=== PATIENT | female | born 1980 | race Hispanic/Latino ===

== ENCOUNTER 2023-01-22 15:39 | Inpatient (IN) | payer MEDICAID, SELFPAY ==
--- NOTE | ~2023-01-22 | XR_ITS ---
EXAMINATION: XR abdomen/kub 1V DATE: 01/24/2023 06:57 INDICATION: Bowel obstruction. TECHNIQUE: A supine view of the abdomen on 2 radiographs was obtained. COMPARISON: CT abdomen and pelvis 01/22/2023 FINDINGS: There are multiple dilated loops of small bowel. The colon is decompressed. The nasogastric tube tip is in the stomach. IMPRESSION: 1. Dilated small bowel, consistent with small bowel obstruction. Reviewed, dictated and finalized at location A.
--- NOTE | ~2023-01-22 | CT_ITS ---
EXAMINATION: CT guide absc cath placement DATE: 01/24/2023 15:30 INDICATION: Pelvic abscess TECHNIQUE: The procedure including the risks and benefits was discussed with the patient and the angela ent's son. Risks discussed included bleeding, infection, allergic reaction and nerve or organ injury. The patient understood the risks and benefits and agreed to proceed. The patient was confirmed to be receiving appropriate antibiotic coverage. The skin overlying the left buttock was prepped and drap ed in usual sterile fashion. Anesthetic was administered with 1% lidocaine subcutaneously. An 18-gau ge trochar needle was inserted into the pelvic peritoneal fluid collection by trocar technique utiliz ing intermittent CT guidance. Trochar was removed and a J-wire advanced into the fluid collection wit h position confirmed by CT. Utilizing Seldinger technique the needle was removed over the wire and th e tract serially dilated to 10 Bulgarian. Spontaneous efflux of fluid seen along the needle tract follow ing removal of the 10 Bulgarian dilator which was causing the patient discomfort. It was therefore elect ed to place an 8.5 Bulgarian catheter over the wire. After confirmation of positioning of the catheter w ithin the fluid collection the pigtail tip was locked and the wire removed. The catheter was stitched to the skin with suture and antibiotic appointment and a sterile dressing were applied. The catheter was then attached to suction drainage. There were no immediate complications. The dose-length produc t was 214.48 mGy-cm. FINDINGS: CT images demonstrate the catheter within the fluid collection. 60 mL of purulent appearing opaque joe-colored fluid was aspirated for testing. IMPRESSION: 1. Successful CT-guided left transgluteal percutaneous abscess drainage catheter placement. 2. 60 mL fluid was sent for aerobic and anaerobic cultures. 3. The catheter will be managed by Dr. Modi. Reviewed, dictated and finalized at location A. IMPRESSION: 1. Successful CT-guided left transgluteal percutaneous abscess drainage cathete r placement. 2. 60 mL fluid was sent for aerobic and anaerobic cultures. 3. The catheter will be managed by Dr. Modi.
--- NOTE | ~2023-01-22 | XR_ITS ---
EXAM: XR abdomen NG/feed tube insert DATE: 01/22/2023 20:56 HISTORY: NG PLACEMENT . COMPARISON: None available. FINDINGS: Bibasilar scar/atelectasis. NG tube, tip and side port projecting over the expected locati on of the stomach in the left upper quadrant. Multiple loops of dilated small bowel in the upper abdo men. IMPRESSION: NG tube, in good position. Small bowel obstruction/ileus. Reviewed, dictated and finalized at location K.
--- NOTE | ~2023-01-22 | CT_ITS ---
EXAMINATION: CT abdomen pelvis w con DATE: 01/22/2023 18:41 INDICATION: abdominal pain TECHNIQUE: Computed tomography (CT) of the abdomen and pelvis was performed with 100 mL Omnipaque-350 intravenous contrast. Automated exposure control and iterative reconstruction technique were employe d. The dose-length product was 407.03 mGy-cm. COMPARISON: None. FINDINGS: Lower thorax: Bibasilar scar, greater in the left lower lobe. Liver: Normal. Biliary/Gallbladder: Cholelithiasis. No bile duct dilation. Pancreas: No mass or duct dilation. Spleen: Normal. Adrenals:No mass. Kidneys: No mass, stone, or hydronephrosis. GI tract: Diffusely dilated small bowel. Interloop fluid. Uniform bowel wall enhancement. No pneumato sis or portal venous gas. Scattered diverticuli. Dilated appendix. Mesentery/Peritoneum: Multiple rim-enhancing deep pelvic fluid collections (including small perirecta l and perisigmoid collections, and a larger periuterine collection measuring 5.6 x 9.8 cm). Several s mall rim-enhancing right lower quadrant/periappendiceal fluid collections measuring up to 2.7 cm. Retroperitoneum: No mass. Pelvis: Pelvic organs are within normal limits. Soft Tissues: Soft tissues and body wall unremarkable. Bones: No acute osseous finding. 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 IMPRESSION: Intra-abdominal abscesses in the right lower quadrant and deep pelvis. Source not definitively identi fied but may be related to complicated appendicitis or diverticulitis. Severe distal small bowel obst ruction or ileus, likely related to intra-abdominal inflammation. Reviewed, dictated and finalized at location K. IMPRESSION: Intra-abdominal abscesses in the right lower quadrant and deep pelvis. Source n ot definitively identified but may be related to complicated appendicitis or di verticulitis. Severe distal small bowel obstruction or ileus, likely related to intra-abdominal inflammation.
[2023-01-22 15:43] VITALS: BP 122/86; PULSE 88; RESP 20; TEMP 36.7; O2SAT 98
[2023-01-22 17:02] LABS: Basophils Absolute Auto 0.1 K/mm3 (0.0-0.1); Basophils Percent Auto 0.3 % (0.2-1.2); Eosinophils Absolute Auto 0.1 K/mm3 (0-0.3); Eosinophils Percent Auto 0.3 % (0-4.4); Hematocrit 38.9 % (37.0-47.0); Hemoglobin 13.6 g/dL (12.0-15.0); Immature Granulocyte Absolute 0.07 K/mm3 (0.00-0.031); Immature Granulocyte Percent A 0.4 % (0-0.5); Lymphocytes Absolute Auto 0.88 K/mm3 (0.9-3.2); Lymphocytes Percent Auto 5.3 % (18.3-44.2); Mean Corpuscular Hemoglobin 31.8 pg (26-34); Mean Corpuscular Volume 90.9 fl (80-100); Mean Platelet Volume 10.2 fl (7.4-10.4); Monocytes Absolute Auto 0.5 K/mm3 (0.1-0.6); Monocytes Percent Auto 2.8 % (2.6-8.5); Neutrophils Percent Auto 90.9 % (45.5-73.1); Platelet Count Result 374 k/mm3 (150-375); Red Blood Count 4.28 M/mm3 (4.2-5.4); Red Cell Distribution Width 12.3 % (11.5-14.5); White Blood Count 16.5 K/mm3 (4.5-10.0)
[2023-01-22 17:15] LABS: Lactic Acid Reflex 1.5 mmol/L (0.7-2.0)
[2023-01-22 17:16] LABS: Alanine Aminotransferase 22 U/L (6-35); Albumin Level 4.6 g/dL (3.5-5.1); Alkaline Phosphatase 126 U/L (38-126); Anion Gap 11 mmol/L (8-16); Aspartate Amino Transferase 22 U/L (14-36); Blood Urea Nitrogen 12 mg/dL (7-17); Calcium 10.2 mg/dL (8.4-10.2); Carbon Dioxide 27 mmol/L (22-30); Chloride 100 mmol/L (98-107); Estimated CRCL calculation 65 ml/min; Estimated Glomerular Filt Rate > 60; Glucose 156 mg/dL (65-110); Lipase 18 U/L (23-300); Potassium 3.6 mmol/L (3.4-5.0); Sodium 138 mmol/L (137-145)
[2023-01-22 17:39] LABS: Appearance Urine Turbid (Clear); Bacteria Urine None Seen /hpf; Bilirubin Urine 2+ (Negative); Blood Urine 3+ (Negative); Color Urine Dark Yellow (Yellow); Glucose Urine UA Negative (Negative); Ketones Urine Trace mg/dL (Negative); Leukocyte Esterase Ur Trace LEU/UL (Negative); Need Manual Microscopic Reviewed; Nitrate Urine Negative (Negative); Non Pathogenic Casts >20; Protein Urine 3+ mg/dL (Negative); Specific Grav Ur 1.023 (1.001-1.035); Squamous Epithelial Cell Urine Many /hpf (Few)
[2023-01-22 17:41] LABS: Add Urine Microscopic? YES
--- NOTE | 2023-01-22 17:43 | ED.ABDPAIN ---
HPI - Abdominal Pain General Chief Complaint: Abdominal Pain Stated Complaint: abdominal pain with n/v with bloating Time Seen by Provider: 01/22/23 15:45 History of Present Illness HPI narrative: 42-year-old female presented the emergency department for evaluation of generalized abdominal pain. Patient states she did have some diarrhea on Tuesday and yesterday she began developing some nausea and vomiting. Patient describes upper and lower abdominal pain. Patient does have prior history of constipation. Patient denies any prior history of abdominal surgeries. Patient is French-speaking and the [facility] system was used for the patient interview. Patient's family was also present during the interview and they did participate. Related Data Home Medications Medication Instructions Recorded Confirmed naproxen 500 mg tablet 500 mg PO BID 01/22/23 01/22/23 Allergies Allergy/AdvReac Type Severity Reaction Status Date / Time No Known Allergies Allergy Unverified 01/22/23 16:05 Review of Systems Review of Systems: All systems reviewed & are unremarkable except as noted in HPI and below Exam Narrative: APPEARANCE: Well appearing, no pain, no distress, well-nourished. HEAD: normocephalic, atraumatic. EYES: PERRLA/EOMI, conjunctivae clear. NOSE: Normal no drainage NECK: Supple. No adenopathy, no masses. RESPIRATORY: Airway patent, respirations nonlabored. Clear to auscultation bilaterally, no rales, rhonchi, wheezing. CARDIOVASCULAR: Regular rate and rhythm without murmurs rubs or gallops. ABDOMINAL: Soft, diffusely tender, distended, decreased bowel sounds MUSCULOSKELETAL: Moves all extremities. Strength/ROM intact, No edema, No calf tenderness. NEURO: Alert. Cranial nerves II through XII intact. Grossly intact SKIN: Warm, dry. Normal Color Course Course Emergency Course: 42-year-old with diffuse abdominal pain. Patient is afebrile but does have a leukocytosis of 16.5. Patient's CMP is within normal limits. UA does show elevated red and white blood cells. CT shows concern for lower abdominal abscesses due to appendicitis versus diverticulitis. Blood cultures were ordered, patient was started on Zosyn, surgery was consulted, NG tube was placed. Patient and family were updated on the results of the diagnosis and treatment plan. All question concerns were addressed. Patient did have the NG tube placed prior to going to the floor and she was well-appearing after placement. Vital Signs Vital signs: Vital Signs Temperature 98.0 F 01/22/23 15:43 Pulse Rate 88 01/22/23 15:43 Respiratory Rate 20 01/22/23 15:43 Blood Pressure 122/86 01/22/23 15:43 Pulse Oximetry 98 01/22/23 15:43 Oxygen Delivery Room Air 01/22/23 15:43 Temperature 98.0 F 01/22/23 15:43 Pulse Rate 105 H 01/22/23 21:09 Respiratory Rate 16 01/22/23 21:09 Blood Pressure 131/93 H 01/22/23 21:04 Pulse Oximetry 97 01/22/23 21:09 Oxygen Delivery Room Air 01/22/23 15:43 MDM - Abdominal Pain Differential Diagnosis Differential diagnosis: Likely abdominal pain, acute appendicitis, diverticulitis, gastroenteritis, pancreatitis and small bowel obstruction Lab Data Attestation: I reviewed the patient's lab results. 01/22/23 16:56 01/22/23 16:56 Labs: Lab Results 01/22/23 Range/Units 16:56 WBC 16.5 H (4.5-10.0) K/mm3 RBC 4.28 (4.2-5.4) M/mm3 Hgb 13.6 (12.0-15.0) g/dL Hct 38.9 (37.0-47.0) % MCV 90.9 (80-100) fl MCH 31.8 (26-34) pg MCHC 35.0 (32-36) g/dl RDW 12.3 (11.5-14.5) % Plt Count 374 (150-375) k/mm3 MPV 10.2 (7.4-10.4) fl Immature Gran % (Auto) 0.4 (0-0.5) % Neut % (Auto) 90.9 H (45.5-73.1) % Lymph % (Auto) 5.3 L (18.3-44.2) % [place] % (Auto) 2.8 (2.6-8.5) % Eos % (Auto) 0.3 (0-4.4) % Baso % (Auto) 0.3 (0.2-1.2) % Lymph # (Auto) 0.88 L (0.9-3.2) K/mm3 [place] # (Auto) 0.5 (0.1-0.6) K/mm3 Eos # (Auto) 0.1 (0-0.3) K
[2023-01-22] MEDS: SODIUM CHLORIDE 0.9% IV 1,000 ML 999 ML IV CONT (17:51)
[2023-01-22] MEDS: HYDROmorphone HCL INJ (*CRX) 1 MG/ML SYR 0.5 MG IV PUSH (17:51)
[2023-01-22] MEDS: ONDANSETRON INJ 4 MG/2 ML VIAL IV PUSH (17:51)
--- NOTE | 2023-01-22 19:18 | PC.NURSE ---
0 Assumed pt care from KAITY Anderson
[2023-01-22] MEDS: PIPERACILLN/TAZ 3.375GM/NS50ML 3.375 GM/50 ML BAG IVPB (20:09)
[2023-01-22 21:04] VITALS: BP 131/93; PULSE 101; RESP 16; O2SAT 97
[2023-01-22 21:09] VITALS: PULSE 105; RESP 16; O2SAT 97
--- NOTE | 2023-01-22 21:50 | ADMGEN ---
This patient, Africa Kumar, was admitted to 3 Medical Room 349-01. Patient/family oriented to hospital policies and general routines including ID bracelet, bed and alarms, visiting hours, pain management, procedures, bathroom and other care routines, personal items, smoking policy, room service/diet, and visiting hours. Information on how to activate the Rapid Response Team has been discussed. Patient/Family are encouraged to report perceived risks to care and to ask questions if they do not understand what they are told or what they should do.
[2023-01-22 22:00] VITALS: BP 124/82; PULSE 98; RESP 18; TEMP 36.6; O2SAT 99
[2023-01-22 22:08] VITALS: BMI 28.0
[2023-01-22] MEDS: SODIUM CHLORIDE 0.9% IV 1,000 ML 100 ML IV CONT (23:07)
[2023-01-23] MEDS: PIPERACILLN/TAZ 3.375GM/NS50ML 3.375 GM/50 ML BAG IVPB ×4 (02:42→21:01)
[2023-01-23] MEDS: HYDROmorphone HCL INJ (*CRX) 1 MG/ML SYR 0.5 MG IV PUSH (02:43)
[2023-01-23 06:00] VITALS: BP 135/79; PULSE 95; RESP 20; TEMP 36.9; O2SAT 97
[2023-01-23 07:48] VITALS: O2SAT 97
--- NOTE | 2023-01-23 09:49 | PM.IMHP ---
H&P: HPI History of Present Illness Date/Time: 01/23/23 09:49 Chief Complaint: Abdominal pain, nausea, vomiting, diarrhea Narrative: This is a 42-year-old woman who presented to the emergency department yesterday with generalized abdominal pain that started 4 days prior. She is primarily Yi speaking and staff interpreter is used for history and physical. Her pain was on the right side but also became generalized. She denied any fevers or chills. She was having diarrhea and then also developed nausea and vomiting. She says that her abdomen became very bloated like she was . Her pain has improved significantly since an NG tube was placed in the emergency department. She states that she had 1 mild episode similar to this about a year ago but it resolved fairly quickly and therefore she did go to an emergency department to be evaluated. This time since her pain was persisting and she was having nausea and vomiting she chose to come to the emergency department for evaluation. She denies any recent travel out of the country and denies any other ill contacts. She denies a prior history of diverticulitis. Review of Systems Review of Systems: All systems reviewed & are unremarkable except as noted in HPI and below Constitutional: Constitutional: Denies chills and Denies fever(s) Eyes: Eyes: Denies change in vision ENT: Denies hearing loss, Denies neck pain and Denies sore throat Cardiovascular: Cardiovascular: Denies chest pain and Denies dyspnea Respiratory: Respiratory: Denies cough, Denies dyspnea and Denies wheezing Gastrointestinal: Gastrointestinal: Reports as per HPI Genitourinary: Genitourinary: Denies hematuria and Denies dysuria Musculoskeletal: Musculoskeletal: Denies arthralgias, Denies joint swelling and Denies neck pain Allergic/Immunologic: Allergic/Immunologic: Denies wheezing [facility] Past Medical History Medical History (Updated 01/23/23 @ 09:53 by Yehuda Modi DO) No pertinent past medical history Surgical History Surgical History (Updated 01/23/23 @ 09:53 by Yehuda Modi DO) History of tubal ligation Family History Family History (Updated 01/23/23 @ 09:53 by Yehuda Modi DO) Father Diabetes mellitus Mother No problems noted. Social History Social History Smoking status: Never smoker Alcohol intake: current Drinks per week: 2 Substance use: never Lack of Transportation: No Lack of Food: Never True Current Housing: I Have Housing Concerned About Future Housing: No Difficulty Paying Gas/Electric Bills: No Difficulty Paying for Meds: No Currently Unemployed: No Education: Decline to Answer Difficulty w/ Childcare or Family Care: No Spiritual care concerns: No Meds Home Medications and Allergies Home Medications Medication Instructions Recorded Confirmed Type naproxen 500 mg tablet 500 mg PO BID 01/22/23 01/22/23 History Allergies Allergy/AdvReac Type Severity Reaction Status Date / Time No Known Allergies Allergy Unverified 01/22/23 16:05 Vital Signs Vital Signs - 24 hr 01/22/23 15:43 01/22/23 21:04 01/22/23 21:09 Temperature 36.7 C Pulse Rate 88 101 H 105 H Respiratory Rate 20 16 16 Blood Pressure 122/86 131/93 H Pulse Oximetry 98 97 97 Oxygen Delivery Room Air 01/22/23 22:00 01/23/23 06:00 01/23/23 07:48 Temperature 36.6 C 36.9 C Pulse Rate 98 95 Respiratory Rate 18 20 Blood Pressure 124/82 135/79 Pulse Oximetry 99 97 97 Oxygen Delivery Room Air Exam Const: General: alert; No acute distress Orientation/consciousness: patient oriented x3 Limitations: no limitations HENMT: Head: normocephalic and atraumatic Ears: hearing grossly normal bilaterally Face/Nose/Sinus: Normal external nose present and Normal nares present Mouth: Yes Normal oral and palatal mucosa present and Yes moist mucous membranes Eyes: General: appearance normal, both eyes and all rel
[2023-01-23] MEDS: SODIUM CHLORIDE 0.9% IV 1,000 ML 100 ML IV CONT ×2 (10:59→21:04)
[2023-01-23 15:14] VITALS: BP 132/82; PULSE 99; RESP 16; TEMP 36.6; O2SAT 97
[2023-01-23 20:29] VITALS: BP 131/82; PULSE 94; RESP 18; TEMP 36.9; O2SAT 98
[2023-01-24] VITALS (17 sets, daily range): BP systolic 127–146; BP diastolic 77–91; PULSE 83–104; RESP 16–26; TEMP 36.3–36.8; O2SAT 95–100
[2023-01-24] MEDS: PIPERACILLN/TAZ 3.375GM/NS50ML 3.375 GM/50 ML BAG IVPB ×3 (02:15→20:07)
[2023-01-24 06:02] LABS: Hematocrit 29.7 % (37.0-47.0); Hemoglobin 10.1 g/dL (12.0-15.0); Mean Corpuscular Hemoglobin 31.8 pg (26-34); Mean Corpuscular Volume 93.4 fl (80-100); Mean Platelet Volume 9.7 fl (7.4-10.4); Platelet Count Result 300 k/mm3 (150-375); Red Blood Count 3.18 M/mm3 (4.2-5.4); Red Cell Distribution Width 12.4 % (11.5-14.5)
[2023-01-24 06:10] LABS: Anion Gap 7 mmol/L (8-16); Blood Urea Nitrogen 8 mg/dL (7-17); Calcium 8.4 mg/dL (8.4-10.2); Carbon Dioxide 25 mmol/L (22-30); Chloride 111 mmol/L (98-107); Estimated CRCL calculation 105 ml/min; Estimated Glomerular Filt Rate > 60; Glucose 114 mg/dL (65-110); Potassium 3.3 mmol/L (3.4-5.0); Sodium 143 mmol/L (137-145)
[2023-01-24 06:12] LABS: INR 1.1; Prothrombin Time 15.2 Seconds (11.1-14.7)
[2023-01-24 06:13] LABS: Partial Thromboplastin Time 29.7 SECONDS (22.3-36.8)
[2023-01-24] MEDS: SODIUM CHLORIDE 0.9% IV 1,000 ML 100 ML IV CONT (08:09)
--- NOTE | 2023-01-24 10:12 | PC.NURSE ---
Gave patient consent form in croatian so she could review it along with an haitian consent form. Son at bedside with patient. Patient signed haitian consent form.
[2023-01-24] MEDS: POTASSIUM CHLORIDE INJ 40 MEQ in SODIUM CHLORIDE 0.9% IV 500 ML 130 MEQ IVPB (11:45)
--- NOTE | 2023-01-24 13:54 | WPDMODSED ---
Moderate Sedation Note-Pt Data Patient Data Diagnosis: Pelvic abscess Present Complaint: abdominal pain and leukocytosis Procedure to be performed/Plan: CT guided transgluteal pelvic peritoneal abscess drain placement Allergies Allergy/AdvReac Type Severity Reaction Status Date / Time No Known Allergies Allergy Unverified 01/22/23 16:05 Home Medications Medication Instructions Recorded Confirmed Type naproxen 500 mg tablet 500 mg PO BID 01/22/23 01/22/23 History Current Medications: Active Medications Hydromorphone HCl (Hydromorphone Hcl Inj (*Crx) 1 Mg/Ml Syr) 0.5 mg IV PUSH Q4H PRN PRN Reason: Pain Rated 7-10 Last Admin: 01/23/23 02:43 Dose: 0.5 mg Sodium Chloride (Normal Saline Iv) 1,000 mls @ 100 mls/hr IV CONT .Q10H [facility] Last Admin: 01/24/23 08:09 Dose: 100 mls/hr Piperacillin/Tazobactam/Dextrose (Zosyn 3.375 Gm/Ns 50 Ml) 3.375 gm in 50 mls @ 100 mls/hr IVPB Q6H [facility] Last Infusion: 01/24/23 08:39 Dose: Infused Potassium Chloride 40 meq/ (Sodium Chloride) 520 mls @ 130 mls/hr IVPB ONCE ONE Stop: 01/24/23 15:14 Last Admin: 01/24/23 11:45 Dose: 130 mls/hr Acetaminophen (Ofirmev 1,000 Mg Ivpb) 1,000 mg in 100 mls @ 400 mls/hr IVPB Q6H PRN PRN Reason: Pain Rated 4-6 Stop: 01/25/23 10:59 Ondansetron HCl (Ondansetron Inj 4 Mg/2 Ml Vial) 4 mg IV PUSH Q4H PRN PRN Reason: Nausea Sedation/Anesthesia: No previous sedation/anesthesia problems (including family history). [facility] Past Medical History Medical History (Updated 01/23/23 @ 09:53 by Yehuda Modi DO) No pertinent past medical history Surgical History Surgical History (Updated 01/23/23 @ 09:53 by Yehuda Modi DO) History of tubal ligation Family History Family History (Updated 01/23/23 @ 09:53 by Yehuda Modi DO) Father Diabetes mellitus Mother No problems noted. Social History Social History Smoking status: Never smoker Alcohol intake: current Drinks per week: 2 Substance use: never Lack of Transportation: No Lack of Food: Never True Current Housing: I Have Housing Concerned About Future Housing: No Difficulty Paying Gas/Electric Bills: No Difficulty Paying for Meds: No Currently Unemployed: No Education: Decline to Answer Difficulty w/ Childcare or Family Care: No Spiritual care concerns: No Mod Sed Physical Exam Physical Exam Pre Procedural Exam: Normal: Appearance, Lungs, Heart Rate and Heart Rhythm and Variation: Nose (NG tube) and Abdomen (tender to palpation) Hours since solid foods: 48 Hours since liquid intake: 48 Mallampati Classification: class II Internal Medicine - PN: Obj Da Vital Signs Vital Signs: Vital Signs - 24 hr 01/23/23 15:14 01/23/23 20:29 01/23/23 20:00 Temperature 97.9 F 98.4 F Pulse Rate 99 94 Respiratory Rate 16 18 Blood Pressure 132/82 131/82 Pulse Oximetry 97 98 Oxygen Delivery Room Air 01/24/23 06:00 01/24/23 08:10 Temperature 98.2 F Pulse Rate 83 Respiratory Rate 20 Blood Pressure 127/79 Pulse Oximetry 99 Oxygen Delivery Room Air Intake/Output Intake/Output: Intake & Output 01/21/23 01/22/23 01/23/23 01/24/23 23:59 23:59 23:59 23:59 Intake Total 1050 2200 1100 Output Total 50 1100 Balance 1000 1100 1100 Meds/Results Medications: Active Medications Generic Name Dose Route Start Last Admin Trade Name Freq PRN Reason Stop Dose Admin Hydromorphone HCl 0.5 mg 01/22/23 19:44 01/23/23 02:43 Hydromorphone Hcl Inj (*Crx) 1 Mg/Ml Syr IV PUSH 0.5 mg Q4H PRN Administration Pain Rated 7-10 Sodium Chloride 1,000 mls @ 100 mls/hr 01/22/23 19:45 01/24/23 08:09 Normal Saline Iv IV CONT 100 mls/hr .Q10H [facility] Administration Piperacillin/Tazobactam/Dextrose 3.375 gm in 50 mls @ 100 mls/hr 01/23/23 02:00 01/24/23 08:39 Zosyn 3.375 Gm/Ns 50 Ml IVPB Infused Q6H [facility] Infusion Potassium Chloride 40 meq/ 520 mls @ 130 mls/hr 01/24/23 11:
--- NOTE | 2023-01-24 14:08 | PC.NURSE ---
Patient off of unit to CT
--- NOTE | 2023-01-24 14:32 | SUR.OPER ---
1421: see moderate sedation flow sheet for iv analgesia medications given during procedure. 50mcg fentanyl given ivp by Karena Bertrand RN as ordered by Dr. Pizano. 1428: lidocaine infiltrated into tissue to left sacral area to numb by Dr. Pizano. 1435: drowsy. tolerating well. Dr. Pizano using CT guidance to locate abcess for drain placement in area of L. sacrum. 1441: versed 1mg given ivp as ordered by Karena Bertrand RN for comfort/sedation.
--- NOTE | 2023-01-24 15:35 | PC.NURSE ---
Patient returned to room [address] scan
--- NOTE | 2023-01-24 15:40 | SUR.OPER ---
1446: additional 50mcg Fentanyl given ivp for comfort as ordered. see moderate sedation flow sheet. 1455: drain in place. Dr. Pizano aspirating joe fluid from abcess. 1505: drain secured and dressed by dr. Pizano. Uresil Truclose collection device attached to tubing. 1510: procedure complete. drain in place. L. transgluteal approach/ sacral area abcess drain complete. tolerated well. vss. 1530: returned via stretcher to room 349. Report given to Jaleel BRICENO.
[2023-01-24] MEDS: HYDROmorphone HCL INJ (*CRX) 1 MG/ML SYR 0.5 MG IV PUSH (20:05)
[2023-01-24] MEDS: ONDANSETRON INJ 4 MG/2 ML VIAL IV PUSH (20:05)
[2023-01-25] MEDS: SODIUM CHLORIDE 0.9% IV 1,000 ML 100 ML IV CONT (02:28)
[2023-01-25] MEDS: PIPERACILLN/TAZ 3.375GM/NS50ML 3.375 GM/50 ML BAG IVPB ×4 (02:28→20:00)
[2023-01-25 06:10] LABS: Hematocrit 27.6 % (37.0-47.0); Hemoglobin 9.3 g/dL (12.0-15.0); Mean Corpuscular HGB Conc 33.7 g/dl (32-36); Mean Corpuscular Hemoglobin 31.5 pg (26-34); Mean Corpuscular Volume 93.6 fl (80-100); Platelet Count Result 276 k/mm3 (150-375); Red Blood Count 2.95 M/mm3 (4.2-5.4); Red Cell Distribution Width 12.4 % (11.5-14.5); White Blood Count 7.7 K/mm3 (4.5-10.0)
[2023-01-25 06:24] LABS: Anion Gap 8 mmol/L (8-16); Blood Urea Nitrogen 6 mg/dL (7-17); Calcium 8.4 mg/dL (8.4-10.2); Carbon Dioxide 24 mmol/L (22-30); Chloride 111 mmol/L (98-107); Estimated CRCL calculation 89 ml/min; Estimated Glomerular Filt Rate > 60; Glucose 101 mg/dL (65-110); Potassium 3.3 mmol/L (3.4-5.0); Sodium 143 mmol/L (137-145)
[2023-01-25 07:45] VITALS: BP 126/80; PULSE 80; RESP 20; TEMP 36.2; O2SAT 99
--- NOTE | 2023-01-25 08:23 | PM.PNGS ---
Progress Note: A&P Assessment and Plan (1) Intra-abdominal abscess: Code(s): K65.1 - Peritoneal abscess Status: Acute Assessment and Plan: S/p placement of perc drain yesterday. Cultures pending. WBC normalized. Continue IV antibiotics Start advancing diet (2) Small bowel obstruction: Code(s): K56.609 - Unspecified intestinal obstruction, unspecified as to partial versus complete obstruction Status: Acute Assessment and Plan: Resolving following perc drain placement. Remove NG tube and start clear liquids. Advance diet as tolerated. Plan I have discussed the patient's case and plan of care with Dr. Modi. Subjective Subjective Date/Time Seen: 01/25/23 08:23 Patient reports: feels better, pain is less, flatus, bowel movement and afebrile Interval history: Chart reviewed. My conversation and exam was done using the [employer] technician as the patient is Romansh-speaking. Patient reports some mild pain at the L gluteal perc drain site, but no abdominal pain. NG was clamped last night and denies any nausea or bloating. Had a BM this morning. No other complaints at this time. Review of Systems Constitutional: Constitutional: Reports no additional constitutional complaints, Denies chills, Denies fever(s), Denies poor appetite and Denies weakness Gastrointestinal: Gastrointestinal: Reports as per HPI and Reports no additional gastrointestinal complaints Exam Const: General: No acute distress Orientation/consciousness: patient oriented x3 GI: Inspection: non-distended and other (L gluteal perc drain with joe purulent drainage) GI Palp: Yes Soft to palpation, No Tenderness to palpation present (GI), No Guarding due to palpation present (GI) and No Rebound tenderness present Auscultation: normal bowel sounds Neuro: General: moves all extremities Extrem: General: no calf tenderness and no edema Psych: Mental Status: mental status grossly normal Insight: Good insight present (Psych) Judgement: Good judgement present (Psych) Objective Data Vital Signs Vital Signs: Vital Signs - 24 hr 01/24/23 14:00 01/24/23 14:14 01/24/23 14:20 Temperature 97.4 F L Pulse Rate 84 93 97 Respiratory Rate 16 20 24 H Blood Pressure 130/85 146/87 H 140/83 Pulse Oximetry 99 100 98 Oxygen Delivery Room Air Room Air 01/24/23 14:29 01/24/23 14:30 01/24/23 14:35 Temperature Pulse Rate 97 97 94 Respiratory Rate 24 H 24 H 22 H Blood Pressure 144/89 H 143/88 H 139/87 Pulse Oximetry 97 97 97 Oxygen Delivery Room Air Room Air Room Air 01/24/23 14:40 01/24/23 14:45 01/24/23 14:50 Temperature Pulse Rate 96 98 94 Respiratory Rate 22 H 24 H 22 H Blood Pressure 139/89 137/89 144/77 H Pulse Oximetry 96 96 95 Oxygen Delivery Room Air Room Air Room Air 01/24/23 14:55 01/24/23 15:00 01/24/23 15:05 Temperature Pulse Rate 104 H 101 H 94 Respiratory Rate 26 H 24 H 24 H Blood Pressure 138/89 138/91 H 137/91 H Pulse Oximetry 96 96 96 Oxygen Delivery Room Air Room Air Room Air 01/24/23 15:10 01/24/23 15:15 01/24/23 15:20 Temperature Pulse Rate 94 93 96 Respiratory Rate 24 H 20 20 Blood Pressure 142/89 H 139/91 H 137/80 Pulse Oximetry 96 97 96 Oxygen Delivery Room Air Room Air Room Air 01/24/23 20:00 01/24/23 23:38 01/25/23 07:45 Temperature 97.9 F 97.1 F L Pulse Rate 93 80 Respiratory Rate 18 20 Blood Pressure 130/79 126/80 Pulse Oximetry 97 99 Oxygen Delivery Room Air 01/25/23 08:10 Temperature Pulse Rate Respiratory Rate Blood Pressure Pulse Oximetry Oxygen Delivery Room Air Intake/Output Intake/Output: Intake & Output 01/22/23 01/23/23 01/24/23 01/25/23 23:59 23:59 23:59 23:59 Intake Total 1050 2200 2670 50 Output Total 50 1100 900 Balance 1000 1100 2670 -850 Meds/Results Medications: Active Medications Generic Name Dose Route Start Last Admin Trade Name Freq PRN Reason Stop Dose Admin Hydromorphone HCl 0.5 mg 05/
[2023-01-25] MEDS: POTASSIUM CHLORIDE INJ 40 MEQ in SODIUM CHLORIDE 0.9% IV 500 ML 130 MEQ IVPB (09:26)
[2023-01-25 14:00] VITALS: BP 120/78; PULSE 75; RESP 18; TEMP 37.5; O2SAT 99
[2023-01-25 20:43] VITALS: BP 114/70; PULSE 75; RESP 16; TEMP 36.2; O2SAT 100
[2023-01-26] MEDS: PIPERACILLN/TAZ 3.375GM/NS50ML 3.375 GM/50 ML BAG IVPB ×4 (02:42→20:31)
[2023-01-26 05:34] VITALS: BP 118/72; PULSE 73; RESP 18; TEMP 36.4; O2SAT 98
[2023-01-26 05:56] LABS: Hematocrit 29.7 % (37.0-47.0); Hemoglobin 9.9 g/dL (12.0-15.0); Mean Corpuscular HGB Conc 33.3 g/dl (32-36); Mean Corpuscular Hemoglobin 30.8 pg (26-34); Mean Corpuscular Volume 92.5 fl (80-100); Mean Platelet Volume 10.1 fl (7.4-10.4); Platelet Count Result 278 k/mm3 (150-375); Red Blood Count 3.21 M/mm3 (4.2-5.4); Red Cell Distribution Width 12.1 % (11.5-14.5); White Blood Count 8.1 K/mm3 (4.5-10.0)
[2023-01-26 06:14] LABS: Anion Gap 4 mmol/L (8-16); Blood Urea Nitrogen 4 mg/dL (7-17); Calcium 8.2 mg/dL (8.4-10.2); Carbon Dioxide 31 mmol/L (22-30); Chloride 104 mmol/L (98-107); Estimated CRCL calculation 105 ml/min; Estimated Glomerular Filt Rate > 60; Glucose 121 mg/dL (65-110); Potassium 3.2 mmol/L (3.4-5.0); Sodium 139 mmol/L (137-145)
--- NOTE | 2023-01-26 12:05 | PM.PNGS ---
Progress Note: A&P Assessment and Plan (1) Intra-abdominal abscess: Code(s): K65.1 - Peritoneal abscess Status: Acute Assessment and Plan: S/p placement of perc drain 01/25/23. Cultures growing B. fragilis and pseudomonas aeruginosa. WBC normalized. Not much output from the perc drain. Attempted flushing the drain with saline today. Continue to monitor. Continue IV Zosyn Advance to regular diet. Replace potassium orally. (2) Small bowel obstruction: Code(s): K56.609 - Unspecified intestinal obstruction, unspecified as to partial versus complete obstruction Status: Acute Assessment and Plan: Resolved s/p perc drain placement.Tolerating full liquids and bowels are moving. Advance to a regular diet. Plan I have discussed the patient's case and plan of care with Dr. Modi. Subjective Subjective Date/Time Seen: 01/26/23 12:05 Patient reports: no new complaints, tolerating liquids well, flatus, bowel movement and afebrile Interval history: Patient doing well today. Her two sons and brother are at the bedside. Family translated for our conversation with the patient's permission and per her request. She is tolerating full liquids. No nausea or vomiting. Denies any abdominal pain. No longer even having pain at the L gluteal perc drain site. Only 30 cc documented output from the drain yesterday during day shift. No output from overnight documented and nursing was not given an amount of output from nightsift in report. No other complaints at this time. Review of Systems Review of Systems: ROS unchanged Exam Const: General: No acute distress Orientation/consciousness: patient oriented x3 GI: Inspection: non-distended and other (L gluteal perc drain with joe drainage) GI Palp: Yes Soft to palpation, No Tenderness to palpation present (GI), No Guarding due to palpation present (GI) and No Rebound tenderness present Auscultation: normal bowel sounds Extrem: General: no edema Psych: Mental Status: mental status grossly normal Insight: Good insight present (Psych) Objective Data Vital Signs Vital Signs: Vital Signs - 24 hr 01/25/23 14:00 01/25/23 20:43 01/25/23 20:00 Temperature 99.5 F 97.1 F L Pulse Rate 75 75 Respiratory Rate 18 16 Blood Pressure 120/78 114/70 Pulse Oximetry 99 100 Oxygen Delivery Room Air 01/26/23 05:34 01/26/23 08:23 Temperature 97.6 F Pulse Rate 73 Respiratory Rate 18 Blood Pressure 118/72 Pulse Oximetry 98 Oxygen Delivery Room Air Intake/Output Intake/Output: Intake & Output 01/23/23 01/24/23 01/25/23 01/26/23 23:59 23:59 23:59 23:59 Intake Total 2200 2670 2250 710 Output Total 1100 930 Balance 1100 2670 1320 710 Meds/Results Medications: Active Medications Generic Name Dose Route Start Last Admin Trade Name Freq PRN Reason Stop Dose Admin Acetaminophen 1,000 mg 01/25/23 08:25 Acetaminophen 500 Mg Tablet PO Q6H PRN Mild Pain (1-3) or Fever Hydrocodone Bitart/Acetaminophen 1 tab 01/25/23 08:25 Hydrocodone/Acetaminophen (*Crx) 5-325 Mg Tablet PO Q4H PRN Pain Rated 4-6 Hydrocodone Bitart/Acetaminophen 1 tab 01/25/23 08:25 Hydrocodone/Acetaminophen (*Crx) 7.5-325 Mg Tablet PO Q6H PRN Pain Rated 7-10 Piperacillin/Tazobactam/Dextrose 3.375 gm in 50 mls @ 100 mls/hr 01/23/23 02:00 01/26/23 08:53 Zosyn 3.375 Gm/Ns 50 Ml IVPB Infused Q6H SOFIA Infusion Ondansetron HCl 4 mg 01/22/23 19:44 01/24/23 20:05 Ondansetron Inj 4 Mg/2 Ml Vial IV PUSH 4 mg Q4H PRN Administration Nausea Radiology Results: ITS Impressions Abdomen/Pelvis CT 01/22/23 18:51 IMPRESSION: Intra-abdominal abscesses in the right lower quadrant and deep pelvis. Source not definitively identified but may be related to complicated appendicitis or diverticulitis. Severe distal small bowel obstruction or ileus, likely related to intra-abdominal inflammation.
[2023-01-26] MEDS: POTASSIUM CHLORIDE 20 MEQ TABLET 40 MEQ PO (13:14)
[2023-01-26 14:47] VITALS: BP 129/86; PULSE 83; RESP 16; TEMP 36.6; O2SAT 100
[2023-01-26 20:04] VITALS: BP 117/82; PULSE 87; RESP 18; TEMP 36.6; O2SAT 99
[2023-01-26 21:30] VITALS: O2SAT 99
[2023-01-27] MEDS: PIPERACILLN/TAZ 3.375GM/NS50ML 3.375 GM/50 ML BAG IVPB ×2 (02:13→10:02)
[2023-01-27] MEDS: HYDROcodone/acetaminophen (*CRX) 7.5-325 MG TABLET 1 TAB PO ×2 (02:56→10:07)
[2023-01-27 03:58] VITALS: BP 108/75; PULSE 74; RESP 18; TEMP 36.5; O2SAT 98
[2023-01-27 06:10] LABS: Anion Gap 6 mmol/L (8-16); Blood Urea Nitrogen 7 mg/dL (7-17); Calcium 8.7 mg/dL (8.4-10.2); Carbon Dioxide 29 mmol/L (22-30); Chloride 102 mmol/L (98-107); Estimated CRCL calculation 105 ml/min; Estimated Glomerular Filt Rate > 60; Glucose 113 mg/dL (65-110); Potassium 3.7 mmol/L (3.4-5.0); Sodium 137 mmol/L (137-145)
[2023-01-27 07:58] VITALS: O2SAT 97
--- NOTE | 2023-01-27 12:39 | PM.DS ---
DS: Admitting Diagnosis Discharge Date 01/27/2023 Admitting Diagnosis Right lower quadrant intra-abdominal abscess Small-bowel obstruction DS: Discharge Diagnosis Discharge Diagnosis (1) Intra-abdominal abscess: Code(s): K65.1 - Peritoneal abscess Status: Acute (2) Small bowel obstruction: Code(s): K56.609 - Unspecified intestinal obstruction, unspecified as to partial versus complete obstruction Status: Acute DS: Summary Hospital Course Reason for hospitalization: This is a 42-year-old [place]ian-speaking woman who presented to the ER on 01/22/2023 with 4 days of generalized abdominal pain. Workup in the ER showed CT evidence of an intra-abdominal abscess in the right lower quadrant and the pelvis, and severe distal small bowel obstruction or ileus likely related to intra-abdominal inflammation. No obvious source definitively identified but may be related to complicated appendicitis or diverticulitis. Hospital Course: She was admitted to our service for surgical evaluation. She was started on IV Zosyn, IV fluids, and analgesics as needed. She was initially made NPO and had an NG-tube placed. She then had placement of a percutaneous drain placed in Radiology on 01/24/2023. Following drain placement, her small bowel obstruction began to resolve. She was passing gas and moving her bowels. Her NG tube was clamped and ultimately removed. Her diet was advanced as tolerated to a regular diet. There is not much drain output over the course of 3 days. We attempted to flush the drain with still no increased output over the past 24 hours. Her white blood cell count normalized and she has been afebrile. Her abdominal exam improved quickly. She is no longer having any abdominal pain or tenderness. She has still required some oral analgesics for the left transgluteal drain discomfort. Blood cultures were drawn on admission and show no growth to date as of today. Abscess cultures are growing Bacteroides fragilis and Pseudomonas aeruginosa. Discussed the case with Dr. Modi yesterday who recommended drain removal today if still no output. As of today, there was no output from the percutaneous drain overnight or this morning, therefore I removed it at the bedside. She is stable for discharge with transition to oral antibiotics. Will schedule follow-up with Dr. Modi in our office in 2 weeks. Status at Discharge Functional status at discharge: independent ambulation Overall status at discharge: patient is progressing back to baseline Time Spent with Patient Time attestation: Total time spent providing and/or coordinating discharge services: Time spent: Greater than 30 minutes Exam Const: General: no acute distress and awake Nutritional Appearance: average body habitus Orientation/consciousness: patient oriented x3 GI: Inspection: non-distended GI Palp: Yes Soft to palpation, No Tenderness to palpation present (GI) and No Guarding due to palpation present (GI) Auscultation: normal bowel sounds Other: Left gluteal drain and suture removed at the bedside. Gauze dressing and Tegaderm applied. Extrem: General: no calf tenderness and no edema Psych: Mental Status: mental status grossly normal Insight: Good insight present (Psych) DS: Data Data Completed and Pending Labs on day of discharge: Labs from last 24 hours 01/27/23 05:17 Sodium 137 Potassium 3.7 Chloride 102 Carbon Dioxide 29 Anion Gap 6 L BUN 7 Creatinine 0.50 L Estim Creat Clear Calc 105 Estimated GFR > 60 Glucose 113 H Calcium 8.7 Preliminary micro results at discharge 01/24/23 15:27 Anaerobic Culture - Preliminary Abscess Bacteroides fragilis Aerobic Culture - Preliminary Pseudomonas aeruginosa 01/22/23 19:46 Blood Culture - Preliminary Blood 01/22/23 19:28 Blood Culture - Preliminary Blood Procedures/Treatments: Procedures Operation Date: 01/24/23 14:00 Actual Procedure Side Surg
[2023-01-27 14:08] VITALS: BP 109/71; PULSE 78; RESP 22; TEMP 36.6; O2SAT 99
== END 2023-01-27 16:10 | disposition home or self-care (01) | DRG 248 ==
LOC: ANHED 16:46 → ANH3MED 20:43
PROVIDERS: Radiology Diagnostic Radiology; Admitting Provider Surgery; Emergency Provider Emergency Medicine; PCP Physician Assistant; Visit Provider Nurse Practitioner Family
PROC: 0W9J30Z Drainage of Pelvic Cavity with Drainage Device, Percutaneous Approach (ICD-10-PCS; principal; 2023-01-24 14:00)
DX: K65.1 Peritoneal abscess (principal); K56.609 Unspecified intestinal obstruction, unspecified as to partial versus complete obstruction
CPT/HCPCS: 36415; 74018; 74177; 75989; 80048; 80053; 81001; 81025; 83605; 83690; 85025; 85027; 85610; 85730; 87040; 87070; 87075; 87077; 87086; 87088; 87186; 87205; 96361; 96365; 96375; 99285; A9270; C1729; C1769; G0378; J1170; J2250; J2405; J2543; J3010; J3480; J7030; J7040; Q9967